=== PATIENT | male | born 1945 | race Caucasian/White ===

== ENCOUNTER 2021-01-20 08:44 | Outpatient (CLI) | payer MEDICARE, SELFPAY ==
--- NOTE | ~2021-01-20 | US_ITS ---
EXAMINATION: US carotid duplex BI DATE: 01/20/2021 09:28 INDICATION: Carotid bruit TECHNIQUE: Grayscale, color Doppler, and pulsed Doppler images of the cervical carotid arteries were obtained. The degree of vessel stenosis is placed in one of the following categories: normal, <50%, 5 0-69%, >=70% but less than near-occlusion, near-occlusion, or total occlusion. Note that percent sten osis relative to normal distal artery lumen diameter is indirectly measured from velocity measurement s as described by Jose Francisco, et al. Radiology 2003; 229:[id number]. COMPARISON: None. FINDINGS: RIGHT: The right common carotid artery (CCA) peak systolic velocity (PSV) is 47 cm/s. The right internal car otid artery (ICA) PSV is 47 cm/s. The right ICA end-diastolic velocity (EDV) is 16 cm/s. The right IC A/CCA PSV ratio is 1.0. Grayscale and color Doppler images yield an estimate of <50% diameter reducti on from plaque in the ICA. The external carotid artery (ECA) PSV is 28 cm/s. There is antegrade flow in the right vertebral artery. LEFT: The left CCA PSV is 54 cm/s. The left ICA PSV is 63 cm/s. The left ICA EDV is 32 cm/s. The left ICA/C CA PSV ratio is 1.2. Grayscale and color Doppler images yield an estimate of <50% diameter reduction from plaque in the ICA. The ECA PSV is 38 cm/s. There is antegrade flow in the left vertebral artery. IMPRESSION: 1. <50% stenosis in the right internal carotid artery. 2. <50% stenosis in the left internal carotid artery. 3. Cardiac arrhythmias present. Correlate with EKG . Reviewed, dictated and finalized at location A. OR B[employer]INFORMAT[employer] SPECIALIST
== END 2021-01-20 08:45 | disposition home or self-care (01) ==
PROVIDERS: PCP Internal Medicine; Visit Provider Internal Medicine Cardiovascular Disease
DX: R09.89 Other specified symptoms and signs involving the circulatory and respiratory systems (principal); I49.8 Other specified cardiac arrhythmias
CPT/HCPCS: 93880

== ENCOUNTER 2021-08-27 05:57 | Emergency (ER) | payer MEDICARE, SELFPAY ==
--- NOTE | ~2021-08-27 | XR_ITS ---
EXAMINATION: XR shoulder RT min 2V DATE: 08/27/2021 08:15 INDICATION: Right shoulder pain post fall TECHNIQUE: AP internally and externally rotated, AP oblique externally rotated and transscapular Y vi ews of the right shoulder were obtained. COMPARISON: None FINDINGS: Cephalad subluxation of the humeral head with respect to the glenoid with the apex of the humeral hea d abutting the undersurface of the acromion which demonstrates remodeling consistent with chronic rot ator cuff tear. Moderate osteoarthritis at the right glenohumeral joint with cephalad predominant non uniform joint space narrowing and prominent marginal osteophytes along the humeral head. There is add itional moderate right acromioclavicular osteoarthritis. No fracture. Soft tissues are unremarkable. Mild linear discoid atelectasis right lung base. IMPRESSION: 1. Chronic right rotator cuff tear with cephalad subluxation of the humeral head with respect to the glenoid. 2. 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 Reviewed, dictated and finalized at location A. IMPRESSION: 1. Chronic right rotator cuff tear with cephalad subluxation of the humeral hea d with respect to the glenoid. 2. 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
--- NOTE | ~2021-08-27 | XR_ITS ---
EXAMINATION: XR wrist LT min 3V DATE: 08/27/2021 08:15 INDICATION: Left wrist pain post fall TECHNIQUE: Posteroanterior, oblique and lateral views of the left wrist were obtained. COMPARISON: none FINDINGS: No acute fracture. 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 Lenticular osteoarthritis, severe at the wris t and third metacarpophalangeal joints and moderate severity at the remaining metacarpophalangeal dave nts. Mild palmar subluxation at the third metacarpophalangeal joint. Heterotopic ossicle near the tip of the ulnar styloid process. Soft tissue swelling about the carpus. IMPRESSION: 1. 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 No acute osseous abnor mality. Reviewed, dictated and finalized at location A. IMPRESSION: 1. 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 No acute osseous abnormality.
[2021-08-27 06:09] VITALS: BP 134/106; PULSE 97; RESP 18; TEMP 36.9; O2SAT 98
--- NOTE | 2021-08-27 07:37 | ED.GENADULT ---
HPI - General Adult General Chief complaint: Fall Stated complaint: fall Time Seen by Provider: 08/27/21 07:00 History of Present Illness HPI narrative: Patient is a 76-year-old male who presents ER with left wrist pain right shoulder discomfort. Patient was walking up his steps 5 days ago when his unsecured sandal got caught on the step and he began to fall forward. He caught himself with his right arm on the handrail and set himself with his left hand on the ground. He has had slowly developing swelling and pain in the left wrist. He also reports that immediately after the stumble he had some achiness in the right side of his back which is improved. He also had some mild headache but that has resolved and he did not suffer head trauma. Related Data Home Medications Medication Instructions Recorded Confirmed apixaban 5 mg tablet 5 mg PO BID 12/07/19 04/20/21 metoprolol tartrate 75 mg tablet 75 mg PO DAILY 12/07/19 04/20/21 omega-3 fatty acids 1,000 mg 2,000 mg PO BID cap 08/18/20 04/20/21 capsule calcium carbonate 500 mg calcium 500 mg PO DAILY 04/20/21 04/20/21 (1,250 mg) tablet cholecalciferol (vitamin D3) 25 25 mcg PO DAILY 04/20/21 04/20/21 mcg (1,000 unit) capsule multivitamin 1 tablet PO DAILY 04/20/21 04/20/21 Allergies Allergy/AdvReac Type Severity Reaction Status Date / Time epinephrine Allergy Mild Sweating Verified 04/20/21 08:08 carbamazepine Allergy Unknown Unknown Verified 04/20/21 08:08 mepivacaine Allergy Unknown DIAPHORETIC Verified 04/20/21 08:08 Hzeobdf-Krk-Lyz Reductase Allergy Unknown Unknown Verified 04/20/21 08:08 Inhibitor ALL KYLIE Allergy Mild DIAPHORETIC Uncoded 04/20/21 08:08 [facility] Past Medical History Medical History (Updated 08/27/21 @ 08:54 by Christopher Salinas MD) Atrial fibrillation BMI 28.0-28.9,adult BMI 29.0-29.9,adult Colon cancer screening DM2 (diabetes mellitus, type 2) Encounter for Medicare annual wellness exam Encounter for routine adult health examination without abnormal findings Encounter for special screening examination for neoplasm of prostate GERD (gastroesophageal reflux disease) HTN (hypertension) Hyperlipidemia On exterminator helper drug therapy Statin intolerance Surgical History Surgical History (Updated 04/20/21 @ 08:42 by Zamzam Cheung CMA) History of total bilateral knee replacement Family History Family History Mother Hypertension Family history of osteoarthritis Family history of elevated blood lipids Family history of diabetes mellitus in first degree relative Family history of lymphoma Family history of heart disease in male family member before age 55 Sibling Hypertension Family history of elevated blood lipids Family history of malignant neoplasm Family history of diabetes mellitus in first degree relative Patient's sister is in good health Father Family history of osteoarthritis Family history of heart disease in male family member before age 55 Social History Social History Smoking status: Never smoker Second hand tobacco smoke exposure: No Alcohol intake: never Exam Narrative: GENERAL: Well-appearing, well-nourished, and in no acute distress. HEAD: Normocephalic, atraumatic. CHEST: Clear to auscultation. No respiratory distress. HEART: Regular rate and rhythm. Normal peripheral pulses. EXTREMITIES: Focused exam left wrist reveals decreased range of motion with mild swelling and redness. Mildly tender to touch on the ulnar aspect dorsally. Focused exam of the right upper extremity reveals mild limitation with abduction above 90 degrees. Neurovascularly intact. Back: No reproducible midline tenderness of the thoracic or lumbar spine. No reproducible paraspinal muscular tenderness at these levels. SKIN: Warm, dry, no rash. NEURO:Alert and oriented x3. PSYCH: Normal mood and affect. Course C
== END 2021-08-27 09:04 | disposition home or self-care (01) ==
PROVIDERS: Emergency Provider Emergency Medicine; PCP Internal Medicine
DX: S63.502A Unspecified sprain of left wrist, initial encounter (principal); I48.91 Unspecified atrial fibrillation; E11.9 Type 2 diabetes mellitus without complications; I10 Essential (primary) hypertension; E78.5 Hyperlipidemia, unspecified; K21.9 Gastro-esophageal reflux disease without esophagitis; Z96.653 Presence of artificial knee joint, bilateral; Z79.01 Long term (current) use of anticoagulants; M19.011 Primary osteoarthritis, right shoulder; M19.042 Primary osteoarthritis, left hand; M19.032 Primary osteoarthritis, left wrist; M75.101 Unspecified rotator cuff tear or rupture of right shoulder, not specified as traumatic; M24.411 Recurrent dislocation, right shoulder; Z79.84 Long term (current) use of oral hypoglycemic drugs; W10.9XXA Fall (on) (from) unspecified stairs and steps, initial encounter
CPT/HCPCS: 73030; 73110; 99284

== ENCOUNTER → 2022-02-16 08:10 | Outpatient (CLI) | payer MEDICARE, SELFPAY ==
--- NOTE | ~2022-02-16 | CT_ITS ---
EXAMINATION: CT chest high resolution [facility] EXAM DATE: 02/16/2022 08:35 INDICATION: Z77.090 - Contact with and (suspected) exposure to asbestos. TECHNIQUE: Spiral CT of the chest without contrast. HRCT. Axial, coronal and sagittal images of the chest were reviewed. Coronal maximum intensity pixel images of chest reviewed. The dose-length prod uct (DLP) for this examination was 479.66 mGy-cm. The exposure was tailored according to patient siz e (auto mA exposure control), and iterative reconstruction (ASIR) was used as additional dose reducti on technique. Comparison is made to prior examination from 10/02/2012. FINDINGS: No evidence of interstitial lung disease or asbestosis on the HRCT. Several left lower lob e noncalcified nodules up to 4 mm are unchanged consistent with granulomas. No suspicious pulmonary n odules. No pleural plaques identified. There are no pleural or pericardial effusions. Tracheobronc hial tree is patent. There is no mediastinal, hilar or axillary lymphadenopathy. There is no pneu mothorax. Heart normal in size. There are dense coronary arteries, could be severe coronary arter ial sclerosis and/or coronary artery stent(s), which are difficult to distinguish due to cardiac jordon on on this non-gated exam. Correlate with cardiac history and consider cardiology consult if not rece ntly evaluated. Upper abdomen is unremarkable. Large thoracic endplate osteophytes. There are no o steoblastic or osteolytic lesions identified. IMPRESSION: 1. Left lower lobe post infectious residua. 2. Dense coronary arterial sclerosis and/or stents. Reviewed, dictated and finalized at location G.
== END ==
PROVIDERS: PCP Internal Medicine; Visit Provider Internal Medicine
DX: Z77.090 Contact with and (suspected) exposure to asbestos (principal); M25.78 Osteophyte, vertebrae
CPT/HCPCS: 71250

== ENCOUNTER 2023-02-16 12:12 | Outpatient (CLI) | payer MEDICARE, SELFPAY ==
--- NOTE | ~2023-02-16 | XR_ITS ---
Left Knee Technique: AP, lateral, and sunrise views were obtained. Clinical History: Status post fall Findings: No acute fracture or dislocation seen. Total knee arthroplasty hardware in place, without e vidence of hardware convocation. Probable small joint effusion present. There is a large ovoid massli ke soft tissue density posterior to the distal femur measuring at least 9 cm in diameter.. Impression: 9 cm round/ovoid soft tissue density mass posterior to the distal femur. This is nonspecific radiogra phically, with diagnostic considerations including large cystic mass, hematoma, versus solid benign o r malignant neoplasm. Recommend pre and postcontrast MR for further evaluation of this finding. Total knee arthroplasty hardware in place. Reviewed, dictated and finalized at location M. Impression: 9 cm round/ovoid soft tissue density mass posterior to the distal femur. This i s nonspecific radiographically, with diagnostic considerations including large cystic mass, hematoma, versus solid benign or malignant neoplasm. Recommend pre and postcontrast MR for further evaluation of this finding. Total knee arthroplasty hardware in place.
== END 2023-02-16 12:13 | disposition home or self-care (01) ==
PROVIDERS: PCP Internal Medicine; Visit Provider Internal Medicine
DX: M25.562 Pain in left knee (principal); W19.XXXA Unspecified fall, initial encounter; R22.42 Localized swelling, mass and lump, left lower limb; Z96.652 Presence of left artificial knee joint
CPT/HCPCS: 73562

== ENCOUNTER → 2023-03-18 10:25 | Outpatient (CLI) | payer MEDICARE, SELFPAY ==
--- NOTE | ~2023-03-18 | XR_ITS ---
XR knee LT min 4V DATE: 03/18/2023 11:04 INDICATION: Fall one month ago. Still has a lump on the patella. TECHNIQUE: [place] and AP and PA and lateral standing views COMPARISON: None FINDINGS: There is lateral prepatellar soft tissue swelling. Status post left total knee arthroplasty with patellar resurfacing. There is mild suprapatellar knee joint effusion. Again noted is a large ovoid soft tissue mass density or fluid collection posteromedial to the distal femur. Consider MR evaluation There is osteopenia. No fracture or dislocation, periosteal reaction or bone destruction is detected. IMPRESSION: No significant change since 02/16/2023; consider MR examination for further evaluation of large mass density posteromedial to the distal femur Knee joint effusion Lateral prepatellar soft tissue swelling Status post total knee arthroplasty Osteopenia Reviewed, dictated and finalized at location B.
--- NOTE | ~2023-03-18 | US_ITS ---
EXAMINATION: US joint non vasc comp LT DATE: 03/18/2023 11:27 INDICATION: Left knee pain. Patellar bursa. TECHNIQUE: Multiple grayscale and Doppler ultrasound images of the region of concern at the left popl iteal fossa were obtained. COMPARISON: None FINDINGS: 10.0 x 8.6 x 6.4 similar complex cystic mass at the left popliteal fossa with multiple small anechoic spaces by echogenic septations similar-appearing thin and somewhat thicker. IMPRESSION: 1. 10 cm complex cystic lesion at the left popliteal fossa. 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 Differential would include hematoma in the appropriate clinical setting versus less likely neoplasm e ither benign or malignant. Correlate with clinical history and could consider further evaluation with pre and postcontrast MRI as clinically indicated. Reviewed, dictated and finalized at location A. IMPRESSION: 1. 10 cm complex cystic lesion at the left popliteal fossa. Imaging appearance is nonspecific but would particularly given location would be most consistent w ith a Quiroz's cyst with internal synovitis. Differential would include hematoma in the appropriate clinical setting versus less likely neoplasm either benign or malignant. Correlate with clinical history and could consider further evalua tion with pre and postcontrast MRI as clinically indicated.
== END ==
PROVIDERS: PCP Internal Medicine; Visit Provider Internal Medicine
DX: M25.562 Pain in left knee (principal); M71.22 Synovial cyst of popliteal space [Baker], left knee; M25.462 Effusion, left knee; M85.862 Other specified disorders of bone density and structure, left lower leg
CPT/HCPCS: 73564; 76881

== ENCOUNTER 2023-12-10 13:37 | Emergency (ER) | payer MEDICARE, SELFPAY ==
--- NOTE | ~2023-12-10 | XR_ITS ---
Left elbow Technique: AP, oblique, and lateral views were obtained. Clinical History: Pain Findings: No acute fracture or dislocation is seen. Osseous alignment is anatomic. There is mild dege nerative change of the elbow joint. There are heterotopic versus enthesopathic ossifications at the m edial and lateral epicondyles of humerus. There is no displacement of the fat pads, and soft tissues are unremarkable. Impression: No acute fracture or dislocation. Heterotopic ossification and/or enthesopathic change at the medial and lateral epicondylar regions. Mild degenerative change of the elbow joint. Reviewed, dictated and finalized at [facility]. COORDINATOR Impression: No acute fracture or dislocation. Heterotopic ossification and/or enthesopathic change at the medial and lateral epicondylar regions. Mild degenerative change of the elbow joint.
--- NOTE | 2023-12-10 13:43 | ED.EXTPRO ---
HPI - Extremity Problem General Chief complaint: Extremity Injury, Upper <Joel Ann APRN - Last Filed: 12/10/23 16:43> Stated complaint: hand pain <Joel Ann APRN - Last Filed: 12/10/23 16:43> Time Seen by Provider: 12/10/23 13:43 <Joel Ann APRN - Last Filed: 12/10/23 16:43> Source: patient <Joel Ann APRN - Last Filed: 12/10/23 16:43> Mode of arrival: ambulatory <Joel Ann APRN - Last Filed: 12/10/23 16:43> Limitations: no limitations <Joel Ann APRN - Last Filed: 12/10/23 16:43> History of Present Illness HPI Narrative: Missael is a 78-year-old male patient presenting to the clinic today with complaints of left elbow pain and swelling with swelling and pain into his left wrist and hand as well. Reports the elbow swelling started 2 days ago. Was seen by his primary care doctor 2 days ago and was told to apply a Wilman wrap. This morning elbow started to drain some yellow fluid. Patient is diabetic. He denies any fever or chills. <Joel Ann APRN - Last Filed: 12/10/23 16:43> Related Data Home medications: Home Medications Medication Instructions Recorded Confirmed apixaban 5 mg tablet (Eliquis) 5 mg PO BID 12/07/19 12/08/23 metoprolol tartrate 75 mg tablet 75 mg PO DAILY 12/07/19 12/08/23 omega-3 fatty acids 1,000 mg 2,000 mg PO BID 08/18/20 12/08/23 capsule (Fish Oil Concentrate) calcium carbonate 500 mg calcium 500 mg PO DAILY 04/20/21 12/08/23 (1,250 mg) tablet (Calcium 500) multivitamin 1 tablet PO DAILY 04/20/21 12/08/23 ferrous sulfate 325 mg (65 mg 325 mg PO BID 03/16/23 12/08/23 iron) tablet <VETO Castillo Last Filed: 12/10/23 16:43> Allergies/Adverse reactions: Allergies Allergy/AdvReac Type Severity Reaction Status Date / Time epinephrine Allergy Mild Sweating Verified 12/10/23 13:38 carbamazepine Allergy Unknown Unknown Verified 12/10/23 13:38 mepivacaine Allergy Unknown DIAPHORETIC Verified 12/10/23 13:38 Bpjkhmh-RAU-TzH Reductase Allergy Unknown Unknown Verified 12/10/23 13:38 Inhibitor [Uvwkntg-Wnd-Gns Reductase Inhibitor] ALL KYLIE Allergy Mild DIAPHORETIC Uncoded 12/10/23 13:38 <Joel Ann APRN - Last Filed: 12/10/23 16:43> Review of Systems Review of Systems: Pertinent positives per HPI. Patient denies any fever, chills, rash, headache, visual changes, dizziness, cough, runny nose, sore throat, shortness of breath, chest pain, palpitations, nausea, vomiting, diarrhea, constipation, abdominal pain, or any urinary issues. <Joel Ann APRN - Last Filed: 12/10/23 16:43> [facility] Past Medical History Medical History: Medical History (Updated 12/10/23 @ 16:02 by Joel Ann APRN) Asbestos exposure Atrial fibrillation BMI 27.0-27.9,adult BMI 28.0-28.9,adult BMI 29.0-29.9,adult Borderline abnormal TFTs Colon cancer screening DM2 (diabetes mellitus, type 2) Encounter for Medicare annual wellness exam Encounter for routine adult health examination without abnormal findings Encounter for special screening examination for neoplasm of prostate GERD (gastroesophageal reflux disease) HTN (hypertension) Hyperlipidemia Knee pain, left Light headed Low hemoglobin Lung nodule Olecranon bursitis of left elbow On group home drug therapy Statin intolerance <Joel Ann APRN - Last Filed: 12/10/23 16:43> Surgical History Surgical History: Surgical History History of total bilateral knee replacement <Joel Ann APRN - Last Filed: 12/10/23 16:43> Family History Family History: Family History Mother Hypertension Family history of osteoarthritis Family history of elevated blood lipids Family history of diabetes mellitus in first degree relative Family history of lymp
[2023-12-10 13:45] VITALS: BP 164/99; PULSE 86; RESP 18; TEMP 36.4; O2SAT 98
[2023-12-10 15:27] LABS: Basophils Absolute Auto 0.1 K/mm3 (0.0-0.1); Basophils Percent Auto 0.7 % (0.2-1.2); Eosinophils Absolute Auto 0.2 K/mm3 (0-0.3); Eosinophils Percent Auto 2.5 % (0-4.4); Hematocrit 42.6 % (42.0-52.0); Hemoglobin 13.1 g/dL (14.0-18.0); Immature Granulocyte Absolute 0.03 K/mm3 (0.00-0.031); Immature Granulocyte Percent A 0.4 % (0-0.5); Lymphocytes Absolute Auto 1.73 K/mm3 (0.9-3.2); Lymphocytes Percent Auto 25.4 % (18.3-44.2); Mean Corpuscular HGB Conc 30.8 g/dl (32-36); Mean Corpuscular Hemoglobin 29.9 pg (26-34); Mean Corpuscular Volume 97.3 fl (80-100); Mean Platelet Volume 10.5 fl (7.4-10.4); Monocytes Absolute Auto 0.7 K/mm3 (0.1-0.6); Neutrophils Absolute Auto 4.1 K/mm3 (1.3-6.7); Platelet Count Result 235 k/mm3 (150-375); Red Blood Count 4.38 M/mm3 (4.6-6.20); Red Cell Distribution Width 14.3 % (11.5-14.5); White Blood Count 6.8 K/mm3 (4.5-10.0)
[2023-12-10 15:37] LABS: Alanine Aminotransferase 17 U/L (6-50); Albumin Level 4.2 g/dL (3.5-5.1); Alkaline Phosphatase 95 U/L (38-126); Anion Gap 10 mmol/L (8-16); Aspartate Amino Transferase 24 U/L (17-59); Bilirubin,Total 0.7 mg/dL (0.2-1.3); Blood Urea Nitrogen 17 mg/dL (9-20); Carbon Dioxide 25 mmol/L (22-30); Chloride 102 mmol/L (98-107); Estimated CRCL calculation 59 ml/min; Estimated Glomerular Filt Rate > 60; Glucose 222 mg/dL (65-110); Potassium 4.2 mmol/L (3.4-5.0); Sodium 137 mmol/L (137-145)
[2023-12-10 15:38] LABS: Lactic Acid Reflex 2.5 mmol/L (0.7-2.0)
[2023-12-10 18:23] LABS: Reflex Lactic Acid Yes or No Add Lactic
== END 2023-12-10 16:17 | disposition home or self-care (01) ==
PROVIDERS: Emergency Provider Nurse Practitioner Family; PCP Internal Medicine
DX: M70.22 Olecranon bursitis, left elbow (principal); I48.91 Unspecified atrial fibrillation; I10 Essential (primary) hypertension; E11.9 Type 2 diabetes mellitus without complications; E78.5 Hyperlipidemia, unspecified; K21.9 Gastro-esophageal reflux disease without esophagitis; Z96.653 Presence of artificial knee joint, bilateral; Z79.01 Long term (current) use of anticoagulants; Z79.84 Long term (current) use of oral hypoglycemic drugs
CPT/HCPCS: 36415; 73080; 80053; 83605; 85025; 87040; 96372; 99283; J1100